=== PATIENT | male | born 1955 | race African-American/Black ===

== ENCOUNTER 2017-08-11 09:06 | Emergency (ER) | payer OTHER, MEDICAID ==
[~2017-08-11] VITALS: Ht 180.3 cm; Wt 120.0 kg
[~2017-08-11 09:06] MED LIST: ASPI1TAB69 PO; CANA100T PO; COMB0.2S EACH EYE; GABA600T PO; LATA0.002 EACH EYE; LISI-515 PO; LOVA20TA PO; METF1000 PO; PRED20 PO; PROS5TAB PO; TAMS0.4C4 PO; TRAM50TA PO
[2017-08-11 09:15] VITALS: BP 146/67; PULSE 95; RESP 16; TEMP 98.9; O2SAT 96
[2017-08-11] MEDS: RESP: ALBUTEROL 2.5 MG/IPRATROPIUM 0.5 MG NEB (SCH) INH ×2 (10:28→10:29)
[2017-08-11] MEDS ORDERED: predniSONE 20 MG TAB PO ONE (10:30)
[2017-08-11 10:42] VITALS: PULSE 90; RESP 24; O2SAT 97
[2017-08-11] MEDS ORDERED: ASPI81CH7 CHEW (10:44)
--- NOTE | 2017-08-11 10:45 | PD ---
HPI Chief Complaint: Cold / Flu Symptoms Time Seen by Provider: 10:03 Travel History International Travel<30 days: No Contact w/Intl Traveler<30days: No Traveled to known affect area: No History of Present Illness HPI 62-year-old male presents to the emergency department with complaint of cough, runny nose, wheezing 3 days. Is feeling short of breath today. Denies fevers , vomiting. Denies sore throat, ear pain. Denies history of COPD or asthma. Reports tobacco use. Denies chest pain. Shortness of breath is worse with activity. Has not taken any medications or try any treatments to alleviate his symptoms. No known relieving factors. Primary care provider is Ashley العلي. No known allergies. History of hypertension and diabetes mellitus. Has no other medical complaints. No other modifying factors or associated signs and symptoms. PFSH Past Medical History Heart Rhythm Problems: No Cardiac Catheterization: No Cardiovascular Problems: No High Cholesterol: Yes Chest Pain: Yes Congestive Heart Failure: No Diabetes: Yes Hypertension: Yes Musculoskeletal: Yes (Chronic Back and Shoulder pain) Immunizations Current: Yes Past Surgical History Coronary Artery Bypass Graft: No Social History Alcohol Use: Yes (OCC) Tobacco Use: No Substance Use: No Allergies-Medications (Allergen,Severity, Reaction): Coded Allergies: No Known Allergies (Verified Adverse Reaction, Unknown, 08/11/17) Reported Meds & Prescriptions Reported Meds & Active Scripts Active Tessalon Perles (Benzonatate) 100 Mg Cap 100 Mg PO TID PRN 3 Days Azithromycin 500 Mg Tab 500 Mg PO DAILY Nebulizer Kit/Tubing/Mout (N/A) 1 Kit Kit Kit .XX DIRECTED Nebulizer 1 Mis Mis Ea .XX DIRECTED Albuterol Neb (Albuterol Sulfate) 2.5 Mg/3 Ml Neb 2.5 Mg NEB Q4HR NEB PRN Deltasone (Prednisone) 20 Mg Tab 20 Mg PO DAILY 4 Days start 08/12/2017 Ventolin Hfa 18 GM Inh (Albuterol Sulfate) 90 Mcg/Act Aer 2 Puff INH Q4H PRN Reported Aspirin Children's (Aspirin) 81 Mg Chew 81 Mg CHEW DAILY Invokana (Canagliflozin) 100 Mg Tab 100 Mg PO DAILY Take before 1st meal of day. Tramadol (Tramadol HCl) 50 Mg Tab 50 Mg PO Q8H PRN Tamsulosin (Tamsulosin HCl) 0.4 Mg Cap 0.4 Mg PO HS Metformin (Metformin HCl) 1,000 Mg Tab 1,000 Mg PO DAILY With a meal Lovastatin 20 Mg Tab 20 Mg PO DAILY Lisinopril 20 Mg Tab 20 Mg PO DAILY Proscar (Finasteride) 5 Mg Tab 5 Mg PO DAILY Do not crush. Gabapentin 600 Mg Tab 600 Mg PO BID Latanoprost Opth Drops (Latanoprost) 0.005% Drops 1 Drop EACH EYE HS Refrigerate until opened. Combigan Opth Drops (Brimonidine-Timolol Opth Drops) 0.2-0.5% Soln 1 Drop EACH EYE Q12HR Review of Systems Except as stated in HPI: all other systems reviewed are Neg Physical Exam Narrative GENERAL: Well-nourished, well-developed elderly, black male patient, in no acute distress; afebrile, nontoxic-appearing SKIN: Warm and dry. HEAD: Atraumatic. Normocephalic. EYES: Pupils equal and round. No scleral icterus. No injection or drainage. ENT: Mucosa pink and moist. Airway patent. EARS: Bilateral pinnae and external canals appear within normal limits. NECK: Trachea midline. No lymphadenopathy. CARDIOVASCULAR: Regular rate and rhythm. No murmur appreciated. RESPIRATORY: No accessory muscle use. Lungs with Wheezing and rhonchi throughout to auscultation. Breath sounds equal bilaterally. No retractions or tachypnea. Audible wheezing noted. GASTROINTESTINAL: Abdomen soft, non-tender, nondistended. Hepatic and splenic margins not palpable. Bowel sounds are active 4 quadrants. MUSCULOSKELETAL: No obvious deformities. No clubbing. No cyanosis. No edema. NEUROLOGICAL: Awake and alert. Oriented 3. No obvious cranial nerve deficits. Motor grossly within normal limits. Normal speech. Moves all extremities. 5/5 strength to all extremities. PSYCHIATRIC: Appropriate mood and affect; insight and judgment normal. Data Data Last Documented VS Vital Signs Date Time Temp Pulse Resp B/P (MAP) Pulse Ox O2 Delivery O2 Flow Rate FiO2 08/11/17 10:42 90 24 97 08/11/17 10:18 Room Air 08/11/17 09:15 98.9 Orders Orders Chest, Single Ap (08/11/17 10:05) Prednisone (Deltasone) (08/11/17 10:30) Albuterol-Ipratropium Neb (Duoneb Neb) (08/11/17 10:30) Ed Discharge Order (08/11/17 11:38) [facility] Medical Decision Making Medical Screen Exam Complete: Yes Emergency Medical Condition: Yes Medical Record Reviewed: Yes Differential Diagnosis COPD, asthma, bronchitis, pneumonia, URI Narrative Course 62-year-old male patient with diffuse wheezing and rhonchi on auscultation of the lungs. Audible wheezing noted. Mildly tachypneic in the low 20's. No retractions. Chest x-ray, DuoNeb 3, Deltasone ordered. 1133: Chest x-ray concluded: Last 24 hours Impressions Chest X-Ray 08/11/17 1005 Signed Impressions: Service Date/Time: Friday, August 11, 2017 10:22 - CONCLUSION: No acute disease. There is no evidence of pneumonia. Daniel Martins MD Discussed x-ray findings on reexamination. Patient reports improvement in symptoms. He denies shortness of breath. There is no audible wheezing. Lungs are clear and equal throughout. Oxygen saturation is 95% on room air. Patient is without retractions or tachypnea. I discussed plan of care and discharge and he feels comfortable with that plan of care and being discharged home. Ventolin inhaler, nebulizer, Deltasone, azithromycin, Tessalon Perles prescribed for home. Instructed patient to follow up with primary care provider. Patient verbalizes understanding and agreement with treatment plan. Patient is medically cleared and stable for discharge. Discussed reasons to return to the emergency department. Patient agrees with treatment plan. The patients vital signs are stable and the patient is stable for outpatient follow- up and treatment. Patient discharged home, stable and in no acute distress. Diagnosis Primary Impression: Bronchitis Referrals: Primary Care Physician Patient Instructions: Acute Bronchitis (ED), General Instructions Departure Forms: Tests/Procedures, Work Release Enter return to work date: Aug 13, 2017 Additional Instructions: Use Albuterol inhaler as prescribed Take oral steroids as prescribed and complete full course Use Tessalon Perles as prescribed to decrease coughing spasms [id number] decongestants or antihistamines as directed and as needed for symptom management Your cough can last 4-6 weeks Drink plenty of fluids to prevent dehydration Use hot air humidifier to decrease cough exacerbation Turn off ceiling fans and sleep with head of bed elevated Avoid triggers such as second hand smoke, dust, known allergens Follow-up with your primary care provider Return to the emergency department immediately with worsening of symptoms Med/Other Pt SpecificInfo: Prescription(s) given Scripts Benzonatate (Tessalon Perles) 100 Mg Cap 100 MG PO TID Y for COUGH for 3 Days, CAP 0 Refills Prov: Rubi SawantP 08/11/17 Azithromycin (Azithromycin) 500 Mg Tab 500 MG PO DAILY for Infection, #5 TAB 0 Refills Prov: Rubi Sawant 08/11/17 Nebulizer Kit/Tubing/Mout (Nebulizer Kit/Tubing/Mout) 1 Kit Kit KIT .XX DIRECTED for Breathing Treatment, #1 0 Refills Prov: Rubi Sawant 08/11/17 Nebulizer (Nebulizer) 1 Mis Mis EA .XX DIRECTED for Breathing Treatment, #1 0 Refills Prov: Rubi SawantP 08/11/17 Albuterol Neb (Albuterol Neb) 2.5 Mg/3 Ml Neb 2.5 MG NEB Q4HR NEB Y for SOB/WHEEZING, #60 NEBULE 0 Refills Prov: Rubi Sawant 08/11/17 Prednisone (Deltasone) 20 Mg Tab 20 MG PO DAILY for 4 Days, #4 TAB 0 Refills start 08/12/2017 Prov: Rubi SawantP 08/11/17 Albuterol 18 GM Inh (Ventolin Hfa 18 GM Inh) 90 Mcg/Act Aer 2 PUFF INH Q4H Y for SOB/WHEEZING, #1 INHALER 0 Refills Prov: Rubi Sawant 08/11/17 Disposition: 01 DISCHARGE HOME Condition: Stable Rubi Sawant Aug 11, 2017 10:45
--- NOTE | 2017-08-11 10:53 | RADRPT ---
EXAM DATE/TIME: 08/11/2017 10:22 [facility] COMPARISON: CHEST SINGLE AP, November 07, 2015, 21:51. INDICATIONS : Coughing, short of breath for several days MEDICAL HISTORY : Hypertension. Diabetes mellitus type II. SURGICAL HISTORY : None. ENCOUNTER: Initial ACUITY: 3 days PAIN SCORE: 0/10 LOCATION: Bilateral chest FINDINGS: A single view of the chest demonstrates the lungs to be symmetrically aerated without evidence of mas s, infiltrate or effusion. The cardiomediastinal contours are unremarkable. Osseous structures are intact. CONCLUSION: No acute disease. There is no evidence of pneumonia. Daniel Martins MD on August 11, 2017 at 10:50 Board Certified Radiologist. This report was verified electronically.
[2017-08-11] MEDS ORDERED: BENZ100 PO (11:38)
[2017-08-11] MEDS ORDERED: ALBU0.08 NEB (11:38)
[2017-08-11] MEDS ORDERED: AZIT500T2 PO (11:38)
[2017-08-11] MEDS ORDERED: NEBULIZER1 MI1 (11:38)
[2017-08-11] MEDS ORDERED: PRED-503 PO (11:38)
[2017-08-11] MEDS ORDERED: VENTAER INH (11:38)
[2017-08-11] MEDS ORDERED: NEBUKIT5 (11:38)
== END 2017-08-11 12:08 | disposition home or self-care (01) ==
LOC: NEPD 09:06
DX: J40 Bronchitis, not specified as acute or chronic (principal); E78.00 Pure hypercholesterolemia, unspecified; I10 Essential (primary) hypertension; E11.9 Type 2 diabetes mellitus without complications; Z72.0 Tobacco use; Z79.82 Long term (current) use of aspirin
CPT/HCPCS: 71045; 94664; 99283; J7512